=== PATIENT | female | born 1995 | race Caucasian/White ===

== ENCOUNTER → 2020-04-08 | Outpatient (CLI) | payer OTHER ==
[~2020-04-08] MED LIST: IBUP600 PO; PHENA200 PO; SULTRIDS PO; TIZA4 PO; Ultram50 MG PO
== END | disposition home or self-care (01) ==
LOC: LAB SHORT 12:30 → LAB EV 12:30
DX: N39.0 Urinary tract infection, site not specified (principal)
CPT/HCPCS: 87077; 87086; 87186

== ENCOUNTER → 2020-09-26 | Outpatient (CLI) | payer OTHER | LOC: LAB SHORT 16:30 → LAB 16:30 | DX: R30.9 Painful micturition, unspecified (principal) | CPT/HCPCS: 87086 ==

== ENCOUNTER → 2020-11-15 | Outpatient (CLI) | payer OTHER | END | disposition home or self-care (01) | LOC: LAB 15:24 → LAB SHORT 15:24 | DX: N39.0 Urinary tract infection, site not specified (principal) | CPT/HCPCS: 87077; 87086; 87186 ==

== ENCOUNTER → 2021-05-28 | Outpatient (CLI) | payer OTHER | END | disposition home or self-care (01) | LOC: LAB SHORT 11:34 → LAB 11:34 | PROVIDERS: Obstetrics & Gynecology | DX: Z01.419 Encounter for gynecological examination (general) (routine) without abnormal findings (principal) | CPT/HCPCS: G0123 ==

== ENCOUNTER → 2021-09-01 | Outpatient (CLI) | payer OTHER | END | disposition home or self-care (01) | LOC: LAB SHORT 16:31 | DX: N39.0 Urinary tract infection, site not specified (principal) | CPT/HCPCS: 87077; 87086; 87186 ==

== ENCOUNTER 2023-01-21 19:16 | Inpatient (IN) | payer OTHER ==
[~2023-01-21] VITALS: Ht 154.9 cm; Wt 79.5 kg
[2023-01-21 19:32] VITALS: BP 103/62
[2023-01-21] MEDS ORDERED: PREG75 PO (20:25)
[2023-01-21] MEDS ORDERED: FLUO10 PO (20:25)
[2023-01-21] MEDS ORDERED: PRENATAL TABLE1 EAC2 PO (20:26)
[2023-01-21 20:36] LABS: BASOPHILS ABSOLUTE AUTO 0.03 K/mm3 (0.00-0.23); BASOPHILS PERCENT AUTO 0 % (0-2); EOSINOPHILS ABSOLUTE AUTO 0.03 K/mm3 (0.00-0.68); EOSINOPHILS PERCENT AUTO 0 % (0-6); Hematocrit 33.2 % (33.0-51.0); Hemoglobin 11.4 g/dL (11.5-16.0); IMMATURE GRAN ABSOLUTE AUTO 0.06 K/mm3 (0.00-0.10); IMMATURE GRAN PERCENT AUTO 0 % (0-1); LYMPHOCYTES PERCENT AUTO 17 % (21-46); MONOCYTES ABSOLUTE AUTO 1.11 K/mm3 (0.16-1.47); MONOCYTES PERCENT AUTO 8 % (4-13); Mean Corpuscular HGB 30.8 pg (26.0-34.0); Mean Corpuscular HGB Conc 34.3 g/dL (31.5-36.5); Mean Corpuscular Volume 90 fL (80-100); Mean Platelet Volume 9.7 fL (9.1-12.4); NEUTROPHILS ABSOLUTE AUTO 10.02 K/mm3 (1.96-9.15); NEUTROPHILS PERCENT AUTO 74 % (41-73); Platelet Count 278 K/mm3 (150-400); RDW Coefficient Variation 14.2 % (11.7-14.2); RDW Standard Deviation 46.6 fL (35.1-46.3); White Blood Cell Count 13.55 K/mm3 (4.00-11.30)
[2023-01-22] VITALS (26 sets, daily range): BP systolic 103–136; BP diastolic 56–82
[2023-01-23 01:04] VITALS: BP 117/63
[2023-01-23 04:29] VITALS: BP 117/69
[2023-01-23 08:39] VITALS: BP 107/73
[2023-01-23 12:34] VITALS: BP 115/61
--- NOTE | 2023-01-23 12:39 | NUR ---
DISCHARGE DISCHARGE HOME STABLE. ASSUMED CARE FROM MARK RN WHO REPORTS DISCHARGE TEACHING DONE. PARENTS VERBALIZE UNDERSTANDING OF TEACHING AND APPOINTMENTS. CARING FOR SELF AND BABY INDEPENDANTLY. NO QUESTIONS OR CONCERNS. VSS. AFEBRILE. LOCHIA SCANT.
== END 2023-01-23 12:55 | disposition home or self-care (01) | DRG 806 ==
LOC: OBS 19:16 → BC 19:20 → OBS 19:50 → BC 19:51
PROVIDERS: ADMIT Family Medicine
PROC: 10E0XZZ Delivery of Products of Conception, External Approach (ICD-10-PCS; principal; 2023-01-22)
PROC: 10907ZC Drainage of Amniotic Fluid, Therapeutic from Products of Conception, Via Natural or Artificial Opening (ICD-10-PCS; 2023-01-22)
PROC: 0UQMXZZ Repair Vulva, External Approach (ICD-10-PCS; 2023-01-22)
PROC: 4A1HXCZ Monitoring of Products of Conception, Cardiac Rate, External Approach (ICD-10-PCS; 2023-01-22)
DX: O99.344 Other mental disorders complicating childbirth (principal); O99.354 Diseases of the nervous system complicating childbirth; Z37.0 Single live birth; F41.8 Other specified anxiety disorders; Z3A.40 40 weeks gestation of pregnancy; M54.50 Low back pain, unspecified; G89.29 Other chronic pain; O99.892 Other specified diseases and conditions complicating childbirth; O48.0 Post-term pregnancy; O70.0 First degree perineal laceration during delivery; Z88.6 Allergy status to analgesic agent
CPT/HCPCS: 36415; 51702; 59025; 81003; 85025; 86850; 86900; 86901; 86923; 99214; A9270; J1885; J2590; J7120

== ENCOUNTER → 2025-02-01 | Outpatient (CLI) | payer OTHER ==
[~2025-02-01] MED LIST changes: +FLUO10 PO; +PREG75 PO; +PRENATAL TABLE1 EAC2 PO
== END ==
LOC: LAB SHORT 12:42 → LAB 12:42
PROVIDERS: Family Medicine
DX: Z01.419 Encounter for gynecological examination (general) (routine) without abnormal findings (principal)
CPT/HCPCS: 87624; G0145